=== PATIENT | female | born 1970 | race Caucasian/White ===

== ENCOUNTER 2017-02-05 15:21 | Emergency (ER) | payer MEDICAID, OTHER ==
[~2017-02-05] VITALS: Ht 175.3 cm; Wt 100.0 kg
[2017-02-05 15:23] VITALS: Ht 175.3 cm; Wt 100.0 kg
[2017-02-05] MEDS ORDERED: KETOROLAC 15 MG INJ IV STA (20:06)
--- NOTE | 2017-02-05 20:10 | ERD ---
ER Documentation Chief Complaint Date/Time DATE: 02/05/17 TIME: 20:07 Chief Complaint CHEST PAIN WHEN TAKING DEEP BREATH AND CONGESTION HPI 46-year-old female no significant past medical history who presents emergency with chest pain during the majority of today. The patient describes left-sided chest wall pain that is worse to touch worse with movement worse with deep inspiration. She states that upon getting up and sitting down she notes pain to the chest. She has not taken any Tylenol or Motrin during this timeframe. She does describe pleuritic component, no significant shortness of breath. No exertional symptoms. The patient denies any recent cough. She described congestion at triage. No fevers or chills, no control, no recent travel, immobilization, surgery. No family history of early cardiac disease or thromboembolic processes. ROS All systems reviewed and are negative except as per history of present illness. Medications Home Meds Active Scripts Ibuprofen* (Motrin*) 800 Mg Tab, 800 MG PO Q6H Y for PAIN AND OR ELEVATED TEMP, #30 TAB Prov:ANGELA CUEVAS MD 02/05/17 Fmx Family History: No coronary disease, No diabetes Physical Exam Vitals Vital Signs Date Time Temp Pulse Resp B/P Pulse Ox O2 Delivery O2 Flow Rate FiO2 02/05/17 15:23 98.5 88 18 143/86 97 Physical Exam General: Well developed, well nourished, no acute distress Head: Normocephalic, atraumatic. Eyes: Pupils equally reactive, EOM intact ENT: Moist mucous membranes Neck: Supple, no lymphadenopathy Respiratory: Lungs clear bilaterally, no distress Cardiovascular: RRR, no murmurs, rubs, or gallops, reproducible anterior chest wall tenderness without rebound or guarding Abdominal: Soft, non-tender, non-distended, no peritoneal signs : Deferred MSK: No edema, no unilateral swelling, 5/5 strength, no pulse deficits Neurologic: Alert and oriented, moving all extremities, normal speech, no focal weakness, no cerebellar signs Skin: No rash Psych: Normal mood Result Diagram: 02/05/17202402/05/172024 Results 24 hrs Laboratory Tests Test 02/05/17 20:10 02/05/17 20:25 Bedside Urine pH (LAB) 6.5 Bedside Urine Protein (LAB) Negative Bedside Urine Glucose (UA) Negative Bedside Urine Ketones (LAB) Negative Bedside Urine Blood Negative Bedside Urine Nitrite (LAB) Negative Bedside Urine Leukocyte Esterase (L Negative White Blood Count 9.610^3/ul Red Blood Count 5.2010^6/ul Hemoglobin 14.0g/dl Hematocrit 43.4% Mean Corpuscular Volume 83.5fl Mean Corpuscular Hemoglobin 26.9pg Mean Corpuscular Hemoglobin Concent 32.3g/dl Red Cell Distribution Width 13.2% Platelet Count 48574^3/UL Mean Platelet Volume 10.1fl Neutrophils % 54.4% Lymphocytes % 34.4% Monocytes % 5.9% Eosinophils % 4.6% Basophils % 0.4% Nucleated Red Blood Cells % 0.0/100WBC Neutrophils # 5.210^3/ul Lymphocytes # 3.310^3/ul Monocytes # 0.610^3/ul Eosinophils # 0.410^3/ul Basophils # 0.010^3/ul Nucleated Red Blood Cells # 0.010^3/ul Prothrombin Time 12.8Sec Prothrombin Time Ratio 1.0 INR International Normalized Ratio 0.96 Activated Partial Thromboplast Time 29.0Sec D-Dimer < 220.00ng/ml D-Dimer Comment Sodium Level 141mmol/L Potassium Level 3.6mmol/L Chloride Level 101mmol/L Carbon Dioxide Level 27mmol/L Anion Gap 17 Blood Urea Nitrogen 13mg/dl Creatinine 0.51mg/dl Glucose Level 137mg/dl Calcium Level 9.1mg/dl Troponin I < 0.012ng/ml Serum HCG, Qualitative NEGATIVE Current Medications Medications (Trade) Dose Ordered Sig/Darshana Route PRN Reason Start Time Stop Time Status Last Admin Dose Admin Ketorolac Tromethamine (Toradol) 15 mg ONCE STAT IV 02/05/17 20:06 02/05/17 20:07 DC 02/05/17 20:45 Procedures/MDM EKG, MONITORS, & DIAGNOSTIC IMAGING: EKG: I reviewed and interpreted a 12-lead EKG. Rhythm: Normal sinus rhythm Ectopy: None Intervals: No abnormalities ST segments: No elevations or depressions T waves: No contiguous inversions Repeat EKG: EKG: I reviewed and interpreted a 12-lead EKG. Rhythm: Normal sinus rhythm Ectopy: None Intervals: No abnormalities ST segments: No elevations or depressions T waves: No contiguous inversions Chest x-ray: I reviewed and interpreted a 1 view of the chest Mediastinum: No enlargement Cardiac silhouette: No cardiomegaly Airspace: Clear lung smyth bilaterally without evidence of pneumothorax Bones: No evidence of fracture LAB INTERPRETATION: Troponin is negative, d-dimer is negative MEDICAL DECISION MAKING: The patient's history, physical exam and clinical presentation is most consistent with likely musculoskeletal etiology given reproducible symptoms with motor movement and to touch. The patient has no risk factors for early cardiac disease. No significant risk factors for pulmonary embolism. However, the patient has unprovoked pleuritic pain. A d-dimer will be appropriate given wells low risk criteria. I do not believe this is cardiogenic in etiology given reproducible symptoms, no significant risk factors and very atypical presentation. The patient has had greater than 6 hours of symptoms. Based on the patient's clinical exam and history and risk factors, I have a much lower clinical concern for pulmonary embolism, acute aortic dissection, pneumothorax, pneumonia, cardiac tamponade HEART Score: 1 MACE Rate: Less than 1.7% Shared Decision Making: We had a conversation regarding risk stratification, MACE rate, and the risks, benefits, alternatives of disposition planning options. Disposition planning: Given that I have a very low clinical concern for cardiac etiology I do not believe that serial troponins were inpatient hospitalization are necessary. Patient is agreeable to a single troponin, care follow-up. ER COURSE: Toradol provided, with complete resolution of symptoms. The patient's laboratory testing and diagnostic screening is negative. At this time I believe this is most consistent with either pleurisy versus chest wall pain. Nonsteroidal anti-inflammatories would be appropriate. Close primary care follow-up is recommended. Return for exertional symptoms or worsening pain. I kept the patient and/or family informed of laboratory and diagnostic imaging results throughout the emergency room course. DISPOSITION PLAN: We discussed follow up with the patient's primary care doctor within 24 to 48 hours as needed. We also discussed return to the emergency room for worsening symptoms or worsening condition. Outpatient referral: None required Discharge Medications: Motrin Departure Diagnosis: Primary Impression: Chest wall pain Additional Impression: Pleurisy Condition: Stable ANGELA CUEVAS MD Feb 05, 2017 20:10
[2017-02-05 20:11] LABS: URINE BLOOD (Dip) POC Negative (NEGATIVE)
[2017-02-05 20:30] LABS: ADD SCAN DIFF NO
[2017-02-05 20:37] LABS: BASOPHILS % 0.4 % (0.0-2.0); EOSINOPHILS # 0.4 10^3/ul (0.0-0.5); EOSINOPHILS % 4.6 % (0.0-7.0); HEMATOCRIT 43.4 % (37.0-47.0); LYMPHOCYTES # 3.3 10^3/ul (0.8-2.9); LYMPHOCYTES % 34.4 % (15.0-51.0); MEAN CORPUSCULAR HEMOGLOBIN 26.9 pg (29.0-33.0); MEAN CORPUSCULAR HGB CONC 32.3 g/dl (32.0-37.0); MEAN CORPUSCULAR VOLUME 83.5 fl (82.0-101.0); MEAN PLATELET VOLUME 10.1 fl (7.4-10.4); MONOCYTE # 0.6 10^3/ul (0.3-0.9); MONOCYTES % 5.9 % (0.0-11.0); NEUTROPHIL # 5.2 10^3/ul (1.6-7.5); NEUTROPHILS % 54.4 % (39.0-77.0); PLATELET COUNT 363 10^3/UL (140-415); RED CELL DISTRIBUTION WIDTH 13.2 % (11.5-14.5); WHITE BLOOD COUNT 9.6 10^3/ul (4.8-10.8)
--- NOTE | 2017-02-05 20:48 | RADRPT ---
PROCEDURE: XR Chest. CLINICAL INDICATION: Chest pain TECHNIQUE: AP Portable chest. COMPARISON: No pertinent prior examinations were submitted for comparison. FINDINGS: The cardiomediastinal silhouette is normal. The lungs are clear. The osseous structures are unrema rkable. IMPRESSION: No acute findings. RPTAT: HIKT .Morgan Hill MD, MD Date Time Electronically viewed and signed by .Morgan Hill MD, MD on 02/05/2017 20:48 .T/
[2017-02-05 20:51] LABS: INR 0.96; PROTIME 12.8 Sec (12.2-14.2)
[2017-02-05 20:55] LABS: CHLORIDE 101 mmol/L (97-110)
[2017-02-05 20:56] LABS: POTASSIUM 3.6 mmol/L (3.5-5.1); SODIUM 141 mmol/L (135-144)
[2017-02-05 20:59] LABS: ANION GAP 17 (8-16); BLOOD UREA NITROGEN 13 mg/dl (7-20); CALCIUM 9.1 mg/dl (8.4-10.2); CARBON DIOXIDE 27 mmol/L (21-31); CREATININE 0.51 mg/dl (0.44-1.00); GLUCOSE 137 mg/dl (70-220)
[2017-02-05 21:20] LABS: TROPONIN-I < 0.012 ng/ml (0.00-0.12)
[2017-02-05] MEDS ORDERED: IBUP800T25 PO (21:52)
[2017-02-05 21:55] LABS: D-DIMER < 220.00 ng/ml (<460)
[2017-02-05 22:14] VITALS: BP 139/86; PULSE 82; RESP 16; TEMP 98.6
== END 2017-02-05 22:15 | disposition home or self-care (01) ==
LOC: E/R 15:21
DX: R07.89 Other chest pain (principal); R09.1 Pleurisy
CPT/HCPCS: 36415; 71010; 80048; 81003; 84484; 84703; 85025; 85378; 85610; 85730; 93005; 96374; J1885; Z7502